=== PATIENT | male | born 1950 | race Caucasian/White ===

== ENCOUNTER → 2020-07-14 | Outpatient (CLI) | payer MEDICARE, OTHER ==
[~2020-07-14] MED LIST: ASPI81CH PO; ATOR20 PO; CALCIT950 PO; CAND4 PO; CYAN1000 PO; Cipro500 MG PO; DIAZ5 PO; ESOM20 PO; FEXO180 PO; FINA5 PO; FISH1000 PO; FLUT.05NI; FOLI400 PO; Flagyl500 MG PO; HYDACE5 PO; IPRAOI INH; Ipratropium Bro30 ML; LEVOCETIRIZINE D5 MG PO; LOSA50 PO; NIAC500 PO; OMEP20ER PO; SIMV40 PO; SODI1T; Synthroid/Le0.075 MG PO; TAMS.4ER PO; UBID10 PO; UREA226.8 GM TP; UREATC
[2020-07-17 17:37] LABS: CORONAVIRUS (COVID19) CSH-NRL Negative (Negative)
== END | disposition home or self-care (01) ==
LOC: LAB 12:55 → LAB SHORT 12:55
PROVIDERS: Family Medicine
DX: Z20.822 Contact with and (suspected) exposure to COVID-19 (principal)
CPT/HCPCS: U0003

== ENCOUNTER 2020-08-26 12:57 | Emergency (ER) | payer MEDICARE, OTHER ==
[~2020-08-26] VITALS: Ht 177.8 cm; Wt 89.8 kg
[~2020-08-26 12:57] MED LIST changes: -Cipro500 MG PO; -Flagyl500 MG PO; -UBID10 PO; -UREA226.8 GM TP
[2020-08-26 13:58] LABS: BASOPHILS ABSOLUTE AUTO 0.07 K/mm3 (0.00-0.23); BASOPHILS PERCENT AUTO 1 % (0-2); EOSINOPHILS ABSOLUTE AUTO 0.16 K/mm3 (0.00-0.68); EOSINOPHILS PERCENT AUTO 2 % (0-6); Hematocrit 46.1 % (37.0-53.0); Hemoglobin 15.4 g/dL (13.5-17.5); IMMATURE GRAN ABSOLUTE AUTO 0.03 K/mm3 (0.00-0.10); IMMATURE GRAN PERCENT AUTO 0 % (0-1); LYMPHOCYTES ABSOLUTE AUTO 1.36 K/mm3 (0.84-5.20); LYMPHOCYTES PERCENT AUTO 14 % (21-46); MONOCYTES ABSOLUTE AUTO 0.59 K/mm3 (0.16-1.47); MONOCYTES PERCENT AUTO 6 % (4-13); Mean Corpuscular HGB 30.1 pg (26.0-34.0); Mean Corpuscular HGB Conc 33.4 g/dL (31.5-36.5); Mean Corpuscular Volume 90 fL (80-100); Mean Platelet Volume 10.5 fL (9.1-12.4); NEUTROPHILS ABSOLUTE AUTO 7.55 K/mm3 (1.96-9.15); NEUTROPHILS PERCENT AUTO 78 % (41-73); Platelet Count 336 K/mm3 (150-400); RDW Coefficient Variation 12.5 % (11.7-14.2); RDW Standard Deviation 41.4 fL (35.1-46.3); Red Blood Cell Count 5.12 M/mm3 (4.30-5.90); White Blood Cell Count 9.76 K/mm3 (4.00-11.30)
[2020-08-26 14:20] LABS: Alanine Aminotransfer (ALT/SGP 34 U/L (12-78); Albumin, Blood 3.5 g/dL (3.4-5.0); Albumin/Globulin Ratio 0.7 (0.8-1.8); Alk Phos 90 U/L (50-136); Anion Gap 5 mmol/L (6-16); Aspartate Aminotrans (AST/SGOT 30 U/L (12-37); Blood Urea Nitrogen 9 mg/dL (8-24); Bun/Creatinine Ratio 10.3 (12.0-20.0); CO2, Blood 26 mmol/L (21-32); Chloride, Blood 104 mmol/L (98-108); Creatinine, Blood 0.88 mg/dL (0.60-1.20); Globulin, Blood 4.7 g/dL (2.2-4.0); Glomerular Filtration Rate >60 (60-); Glucose, Blood 86 mg/dL (70-99); Potassium, Blood 4.5 mmol/L (3.5-5.5); Sodium, Blood 135 mmol/L (136-145); Total Protein, Blood 8.2 g/dL (6.4-8.2)
[2020-08-26] MEDS ORDERED: UBID10 PO (15:24)
[2020-08-26] MEDS ORDERED: UREA226.8 GM TP (15:29)
[2020-08-26 15:33] LABS: Source, Urine Clean Catch
[2020-08-26 15:42] LABS: Appearance, Urine Hazy (Clear); Bilirubin, Urine Neg (Neg); Blood, Urine 5+ (Neg); Color, Urine Yellow (P-Yellow); Glucose Qualitative, Urine Neg (Neg); Ketones, Urine 1+ (Neg); Leukocyte Esterase, Urine 3+ (Neg); Nitrite, Urine Neg (Neg); Protein, Urine 3+ (Neg); Urobilinogen, Urine NORM (Normal)
[2020-08-26 15:54] LABS: Bacteria Many /hpf; Red Blood Cells, Urine TNTC /hpf (0-2); Squamous Epithelial Cells Not Seen /hpf (Few); White Blood Cells, Urine TNTC /hpf (0-5)
[2020-08-26] MEDS ORDERED: Cipro500 MG PO (16:16)
[2020-08-26] MEDS ORDERED: Flagyl500 MG PO (16:16)
== END 2020-08-26 16:29 | disposition home or self-care (01) ==
LOC: ER 12:57
PROVIDERS: Physician Assistant
DX: K52.9 Noninfective gastroenteritis and colitis, unspecified (principal); N39.0 Urinary tract infection, site not specified; I10 Essential (primary) hypertension; E78.00 Pure hypercholesterolemia, unspecified; E03.9 Hypothyroidism, unspecified; Z88.0 Allergy status to penicillin; Z79.899 Other long term (current) drug therapy
CPT/HCPCS: 36415; 74177; 80053; 81001; 85025; 93005; 93010; 99284-25; Q9967

== ENCOUNTER → 2020-10-29 | Outpatient (CLI) | payer MEDICARE, OTHER ==
[~2020-10-29] MED LIST changes: +Cipro500 MG PO; +Flagyl500 MG PO; +UBID10 PO; +UREA226.8 GM TP
== END | disposition home or self-care (01) ==
LOC: LAB 12:40 → LAB SHORT 12:40
DX: B35.1 Tinea unguium (principal)
CPT/HCPCS: 87102

== ENCOUNTER 2021-05-01 01:02 | Emergency (ER) | payer MEDICARE, OTHER ==
[~2021-05-01] VITALS: Ht 177.8 cm; Wt 90.7 kg
== END 2021-05-01 02:20 | disposition home or self-care (01) ==
LOC: ER 01:02
DX: K08.89 Other specified disorders of teeth and supporting structures (principal); I10 Essential (primary) hypertension; E78.5 Hyperlipidemia, unspecified; K21.9 Gastro-esophageal reflux disease without esophagitis; E03.9 Hypothyroidism, unspecified; Z88.0 Allergy status to penicillin; Z79.82 Long term (current) use of aspirin; Z79.899 Other long term (current) drug therapy
CPT/HCPCS: 96372; 99282-25; J1885

== ENCOUNTER 2021-06-29 22:14 | Observation (INO) | payer MEDICARE, OTHER ==
[~2021-06-29] VITALS: Ht 182.9 cm; Wt 86.2 kg
[2021-06-29] MEDS ORDERED: IPRATROPIUM BRO15 ML (23:24)
[2021-06-29] MEDS ORDERED: AZIT250 (23:24)
[2021-06-29] MEDS ORDERED: TAMSULOSIN HCL0.4 M1 PO (23:24)
[2021-06-29] MEDS ORDERED: Ventolin/Prove6.7 GM (23:24)
[2021-06-30 05:16] LABS: BASOPHILS ABSOLUTE AUTO 0.03 K/mm3 (0.00-0.23); BASOPHILS PERCENT AUTO 0 % (0-2); EOSINOPHILS ABSOLUTE AUTO 0.03 K/mm3 (0.00-0.68); EOSINOPHILS PERCENT AUTO 0 % (0-6); Hematocrit 42.2 % (37.0-53.0); Hemoglobin 14.3 g/dL (13.5-17.5); IMMATURE GRAN ABSOLUTE AUTO 0.03 K/mm3 (0.00-0.10); IMMATURE GRAN PERCENT AUTO 0 % (0-1); LYMPHOCYTES ABSOLUTE AUTO 0.57 K/mm3 (0.84-5.20); LYMPHOCYTES PERCENT AUTO 5 % (21-46); MONOCYTES ABSOLUTE AUTO 0.15 K/mm3 (0.16-1.47); MONOCYTES PERCENT AUTO 1 % (4-13); Mean Corpuscular HGB 30.6 pg (26.0-34.0); Mean Corpuscular HGB Conc 33.9 g/dL (31.5-36.5); Mean Corpuscular Volume 90 fL (80-100); Mean Platelet Volume 10.1 fL (9.1-12.4); NEUTROPHILS PERCENT AUTO 93 % (41-73); Platelet Count 281 K/mm3 (150-400); RDW Coefficient Variation 12.7 % (11.7-14.2); RDW Standard Deviation 41.7 fL (35.1-46.3); Red Blood Cell Count 4.67 M/mm3 (4.30-5.90); White Blood Cell Count 11.81 K/mm3 (4.00-11.30)
[2021-06-30 05:55] LABS: Alanine Aminotransfer (ALT/SGP 40 U/L (12-78); Albumin, Blood 3.5 g/dL (3.4-5.0); Alk Phos 63 U/L (50-136); Anion Gap 9 mmol/L (6-16); Aspartate Aminotrans (AST/SGOT 30 U/L (12-37); Bilirubin, Total 0.5 mg/dL (0.1-1.0); Blood Urea Nitrogen 9 mg/dL (8-24); Bun/Creatinine Ratio 11.4 (12.0-20.0); CO2, Blood 22 mmol/L (21-32); Calcium, Blood 8.5 mg/dL (8.5-10.1); Chloride, Blood 106 mmol/L (98-108); Creatinine, Blood 0.79 mg/dL (0.60-1.20); Globulin, Blood 3.6 g/dL (2.2-4.0); Glomerular Filtration Rate >60 (60-); Glucose, Blood 165 mg/dL (70-99); Potassium, Blood 3.8 mmol/L (3.5-5.5); Sodium, Blood 137 mmol/L (136-145); Total Protein, Blood 7.1 g/dL (6.4-8.2)
--- NOTE | 2021-06-30 18:51 | NUR ---
SHIFT SUMMARY PT ADMITTED FOR POSSIBLE ALLERGIC REACTION. PT WAS STARTED ON ZITHROMYCIN FOR ACUTE BROCHITIS RECENTLY AND DEVELOPED A RASH AND FACIAL SWELLING. PT REPORTED SOME SHORTNESS OF BREATHE WELL BUT THIS MAY BE ATTRIBUTED TO THE BRONCHITIS WELL. PT ADMITTED FOR OBSERVATION AND IS CURRENTLY NOT EXPERIENCING SEVERE SYMPTOMS. VSGuero. WILL REPORT TO MARY MENA.
--- NOTE | 2021-07-01 04:14 | NUR ---
PATIENT WAS ALERT AND ORIENTED X4, STABLE VITAL SIGNS, NO ACUTE CHANGES. PATIENT DENIED ANY PAIN. PATIENT DID NOT SLEEP MUCH DUE TO COUGHING. PATIENT WALK AROUND THE UNIT FOR EXERCISE. CALL LIGHT WITH IN REACH, BED DOWN TO THE LOWEST POSITION. WILL CONTINUE TO MONITOR UNTIL HAND OFF.
--- NOTE | 2021-07-01 11:09 | NUR ---
Pt. was alert and in bed. Pt. welcomed my visit. Rapport was quickly established because of common family connections. Pt. was generally positive, but was unsetteled with what caused his allergic reaction the previoius day. Normalized the sitiuation and listened empathetically. Facilitated a life review. Pt. demonstrated evidence of engagement, encouragement and an increased resolve to get well. Pt. verbalized agreement and gratitude for the care he has received, and the spirtiual care visit. Prayed with Pt.
--- NOTE | 2021-07-01 15:14 | NUR ---
DISCHARGE SUMMARY PATIENT IS ALERT AND ORIENTED X4. PATIENT HAS HAD NO ACUTE EVENTS THIS SHIFT. PATIENT WAS MEDICATED PER EMAR FOR COUGH. NO COMPLAINTS OF PAIN, NAUSEA, SOB, VOMITTING THIS SHIFT. PATIENT WAS WHEELED OUT BY THIS RN TO [employer]IC[employer]. VITAL SIGNS REVIEWED.
== END 2021-07-01 15:05 | disposition home or self-care (01) ==
LOC: ER 22:14 → ERHOLD 22:15 → MEDS 06-30 15:28
PROVIDERS: ADMIT Internal Medicine
DX: T78.2XXA Anaphylactic shock, unspecified, initial encounter (principal); I10 Essential (primary) hypertension; K21.9 Gastro-esophageal reflux disease without esophagitis; E03.9 Hypothyroidism, unspecified; I45.10 Unspecified right bundle-branch block; J20.9 Acute bronchitis, unspecified; Z88.0 Allergy status to penicillin
CPT/HCPCS: 36415; 71045; 80053; 85025; 93005; 93010; 94640; 96372; 96374; 96375; 96376; 99285-25; A9270; G0378; J0171; J1200; J1650; J2930; J7030

== ENCOUNTER 2021-08-11 09:00 | Day surgery (SDC) | payer MEDICARE, OTHER ==
[~2021-08-11] VITALS: Ht 177.8 cm; Wt 91.1 kg
[~2021-08-11 09:00] MED LIST changes: +AZIT250; +IPRATROPIUM BRO15 ML; +TAMSULOSIN HCL0.4 M1 PO; +Ventolin/Prove6.7 GM
[2021-08-11] MEDS ORDERED: VITAMIN B-1250 MCG (09:26)
[2021-08-11] MEDS ORDERED: CALCA500S6 (09:26)
[2021-08-11] MEDS ORDERED: MELA3 (09:27)
[2021-08-11] MEDS ORDERED: UBID10 (09:27)
[2021-08-11] MEDS ORDERED: FISH OIL 1,2001 EAC7 (09:28)
[2021-08-11] MEDS ORDERED: LEVOCETIRIZINE D1 GM (09:28)
[2021-08-11] MEDS ORDERED: ESOM20 (09:28)
[2021-08-11] MEDS ORDERED: ATOR10 (09:29)
[2021-08-11] MEDS ORDERED: LOSA25 (09:29)
[2021-08-11] MEDS ORDERED: LEVOTHYROXINE13 MCG (09:30)
== END 2021-08-11 11:26 | disposition home or self-care (01) ==
LOC: ORSCSDS 09:00
PROVIDERS: Internal Medicine Gastroenterology
PROC: 0DB38ZX Excision of Lower Esophagus, Via Natural or Artificial Opening Endoscopic, Diagnostic (ICD-10-PCS; principal; 2021-08-11 10:30)
DX: K21.9 Gastro-esophageal reflux disease without esophagitis (principal); K20.0 Eosinophilic esophagitis; K31.7 Polyp of stomach and duodenum; Z79.82 Long term (current) use of aspirin; Z79.899 Other long term (current) drug therapy
CPT/HCPCS: 88305; J2704; J7120

== ENCOUNTER 2021-10-22 07:47 | Day surgery (SDC) | payer MEDICARE, OTHER ==
[~2021-10-22] VITALS: Ht 177.8 cm; Wt 92.5 kg
[~2021-10-22 07:47] MED LIST changes: +ATOR10; +CALCA500S6; +ESOM20; +FISH OIL 1,2001 EAC7; +LEVOCETIRIZINE D1 GM; +LEVOTHYROXINE13 MCG; +LOSA25; +MELA3; +UBID10; +VITAMIN B-1250 MCG
[2021-10-22] MEDS ORDERED: FINA5 PO (08:26)
--- NOTE | 2021-10-22 10:01 | NUR ---
10/22/21 1001 Maki Martinez LATE ENTRY PATIENT REFUSED MULTIPLE OFFERS OF PO FLUIDS.
== END 2021-10-22 09:53 | disposition home or self-care (01) ==
LOC: ORSCSDS 07:47
PROVIDERS: Internal Medicine Gastroenterology
PROC: 0DB68ZX Excision of Stomach, Via Natural or Artificial Opening Endoscopic, Diagnostic (ICD-10-PCS; principal; 2021-10-22 09:00)
PROC: 0DB58ZX Excision of Esophagus, Via Natural or Artificial Opening Endoscopic, Diagnostic (ICD-10-PCS; principal; 2021-10-22 09:00)
DX: K21.00 Gastro-esophageal reflux disease with esophagitis, without bleeding (principal); K31.7 Polyp of stomach and duodenum; K57.30 Diverticulosis of large intestine without perforation or abscess without bleeding; I10 Essential (primary) hypertension; Z79.82 Long term (current) use of aspirin; Z79.899 Other long term (current) drug therapy
CPT/HCPCS: 88305; 88312; 88342; J2704; J7120

== ENCOUNTER 2022-07-22 11:47 | Day surgery (SDC) | payer MEDICARE, BC ==
[~2022-07-22] VITALS: Ht 177.8 cm; Wt 90.1 kg
[2022-07-22] MEDS ORDERED: CIPRODEX OTIC7.5 M1 (12:14)
[2022-07-22] MEDS ORDERED: CLOBET30L (12:14)
[2022-07-22] MEDS ORDERED: IPRATROPIUM BRO30 ML (12:15)
[2022-07-22] MEDS ORDERED: LEVOCETIRIZINE D5 MG (12:15)
[2022-07-22] MEDS ORDERED: VALS80 (12:16)
[2022-07-22] MEDS ORDERED: FLUORIDE0.25 MG (12:16)
[2022-07-22] MEDS ORDERED: TAMS.4ER (12:16)
== END 2022-07-22 14:10 | disposition home or self-care (01) ==
LOC: ORSCSDS 11:47
PROVIDERS: Internal Medicine Gastroenterology
PROC: 0DBK8ZX Excision of Ascending Colon, Via Natural or Artificial Opening Endoscopic, Diagnostic (ICD-10-PCS; principal; 2022-07-22 13:00)
DX: K62.5 Hemorrhage of anus and rectum (principal); K57.30 Diverticulosis of large intestine without perforation or abscess without bleeding; R19.4 Change in bowel habit; R10.32 Left lower quadrant pain; D12.2 Benign neoplasm of ascending colon; Z79.899 Other long term (current) drug therapy
CPT/HCPCS: 88305; J2704; J7120

== ENCOUNTER 2024-09-08 22:30 | Emergency (ER) | payer MEDICARE, BC ==
[~2024-09-08] VITALS: Ht 177.8 cm; Wt 90.7 kg
[~2024-09-08 22:30] MED LIST changes: -ATOR10; +ATOR10 PO; +CIPRODEX OTIC7.5 M1; +CLOBET30L; -ESOM20; +FLUORIDE0.25 MG; +IPRATROPIUM BRO30 ML; -LEVOTHYROXINE13 MCG; +LEVOTHYROXINE13 MCG PO; +VALS80 PO
[2024-09-08] MEDS ORDERED: ARNUITY ELLIPT50 MCG INH (22:46)
[2024-09-08 23:53] LABS: BASOPHILS ABSOLUTE AUTO 0.05 K/mm3 (0.00-0.23); BASOPHILS PERCENT AUTO 1 % (0-2); EOSINOPHILS ABSOLUTE AUTO 0.33 K/mm3 (0.00-0.68); EOSINOPHILS PERCENT AUTO 5 % (0-6); Hematocrit 38.6 % (37.0-53.0); Hemoglobin 13.5 g/dL (13.5-17.5); IMMATURE GRAN ABSOLUTE AUTO 0.02 K/mm3 (0.00-0.10); IMMATURE GRAN PERCENT AUTO 0 % (0-1); LYMPHOCYTES PERCENT AUTO 25 % (21-46); MONOCYTES PERCENT AUTO 7 % (4-13); Mean Corpuscular Volume 89 fL (80-100); Mean Platelet Volume 9.7 fL (9.1-12.4); NEUTROPHILS ABSOLUTE AUTO 4.32 K/mm3 (1.96-9.15); NEUTROPHILS PERCENT AUTO 62 % (41-73); Platelet Count 275 K/mm3 (150-400); RDW Coefficient Variation 12.2 % (11.7-14.2); RDW Standard Deviation 40.4 fL (35.1-46.3); Red Blood Cell Count 4.36 M/mm3 (4.30-5.90); White Blood Cell Count 6.92 K/mm3 (4.00-11.30)
[2024-09-09 00:11] LABS: Albumin, Blood 3.5 g/dL (3.4-5.0); Albumin/Globulin Ratio 1.1 (0.8-1.8); Bilirubin, Total 0.4 mg/dL (0.1-1.0); Bun/Creatinine Ratio 14.3 (12.0-20.0); Creatinine, Blood 0.7 mg/dL (0.60-1.20); Globulin, Blood 3.2 g/dL (2.2-4.0); Potassium, Blood 4.1 mmol/L (3.5-5.5); Total Protein, Blood 6.7 g/dL (6.4-8.2)
[2024-09-09] MEDS ORDERED: NS 1,000 ML IV SCH (00:40)
[2024-09-09] MEDS ORDERED: CefTRIAXone Sodium 1,000 MG in NS 100 ML IV ONE (00:40)
[2024-09-09] MEDS ORDERED: Dexamethasone Sod Phos 10 MG/ML 1ML VIAL IV ONE (00:40)
[2024-09-09] MEDS ORDERED: Ketorolac Tromethamine 30mg Vial IV ONE (00:45)
[2024-09-09] MEDS ORDERED: CEPH500 PO (03:58)
[2024-09-09 04:00] VITALS: BP 179/90
== END 2024-09-09 04:06 | disposition home or self-care (01) ==
LOC: ER 22:30
PROVIDERS: Emergency Medicine
DX: J02.0 Streptococcal pharyngitis (principal); E07.89 Other specified disorders of thyroid; E87.1 Hypo-osmolality and hyponatremia; R00.1 Bradycardia, unspecified; I10 Essential (primary) hypertension; E78.5 Hyperlipidemia, unspecified; E03.9 Hypothyroidism, unspecified; K21.9 Gastro-esophageal reflux disease without esophagitis; Z79.51 Long term (current) use of inhaled steroids; Z79.899 Other long term (current) drug therapy; Z88.1 Allergy status to other antibiotic agents; Z88.0 Allergy status to penicillin
CPT/HCPCS: 70491; 80053; 85025; 87430; 96365-59; 96375; 99284-25; J0696; J1100; J1885; J7030; Q9967

== ENCOUNTER 2024-10-18 13:19 | Day surgery (SDC) | payer MEDICARE, BC ==
[~2024-10-18] VITALS: Ht 177.8 cm; Wt 92.1 kg
[~2024-10-18 13:19] MED LIST changes: +ARNUITY ELLIPT50 MCG INH; +CEPH500 PO; +Lactated Ringer's 1,000 ML IV ONE; +propofoL 50 ML IV ONE
[2024-10-18] MEDS ORDERED: CHROMIUM400 MCG (13:32)
[2024-10-18] MEDS ORDERED: POLY500 (13:33)
[2024-10-18] MEDS ORDERED: FLUTICASONE-SA1 EAC1 (13:34)
[2024-10-18] MEDS ORDERED: TURMERIC500 M2 (13:35)
[2024-10-18] MEDS ORDERED: Triamcinolone A15 G3 (13:35)
[2024-10-18] MEDS ORDERED: Vitamin C100 M1 (13:36)
[2024-10-18] MEDS ORDERED: Vitamin B-12100 MCG (13:36)
[2024-10-18] MEDS ORDERED: VITAMIN D310 MC4 (13:36)
[2024-10-18] MEDS ORDERED: Lactated Ringer's 1,000 ML IV ONE (14:46)
[2024-10-18 16:28] VITALS: BP 149/67
== END 2024-10-18 16:16 | disposition home or self-care (01) ==
LOC: ORSCSDS 13:19
PROVIDERS: Internal Medicine Gastroenterology
PROC: 0DJ08ZZ Inspection of Upper Intestinal Tract, Via Natural or Artificial Opening Endoscopic (ICD-10-PCS; principal; 2024-10-18 14:30)
DX: K21.9 Gastro-esophageal reflux disease without esophagitis (principal); R09.A2 Foreign body sensation, throat; E07.9 Disorder of thyroid, unspecified; M54.2 Cervicalgia; I10 Essential (primary) hypertension; E78.5 Hyperlipidemia, unspecified; Z79.899 Other long term (current) drug therapy
CPT/HCPCS: J2704; J7120

== ENCOUNTER 2025-04-04 07:17 | Emergency (ER) | payer MEDICARE, BC ==
[~2025-04-04] VITALS: Ht 175.3 cm; Wt 90.7 kg
[~2025-04-04 07:17] MED LIST changes: +CHROMIUM400 MCG; +FLUTICASONE-SA1 EAC1; -Lactated Ringer's 1,000 ML IV ONE; +POLY500; +TURMERIC500 M2; +Triamcinolone A15 G3; +VITAMIN D310 MC4; +Vitamin B-12100 MCG; +Vitamin C100 M1; -propofoL 50 ML IV ONE
[2025-04-04 07:27] VITALS: BP 203/73
== END 2025-04-04 08:53 | disposition home or self-care (01) ==
LOC: ER 07:17
DX: K08.89 Other specified disorders of teeth and supporting structures (principal); I10 Essential (primary) hypertension; E03.9 Hypothyroidism, unspecified; E78.5 Hyperlipidemia, unspecified; K21.9 Gastro-esophageal reflux disease without esophagitis; Z79.899 Other long term (current) drug therapy; Z79.51 Long term (current) use of inhaled steroids; Z88.0 Allergy status to penicillin; Z88.1 Allergy status to other antibiotic agents; Z91.048 Other nonmedicinal substance allergy status
CPT/HCPCS: 64400; 99282-25; A9270